=== PATIENT | female | born 1990 | race American Indian/Alaskan Native ===

== ENCOUNTER 2017-03-29 23:04 | Emergency (ER) | payer OTHER ==
[2017-03-29 23:44] VITALS: BP 115/73
[2017-03-30 00:17] LABS: Basophils % (Auto) 0.9 % (0.0-1.8); Eosinophils % (Auto) 2.5 % (0.0-4.3); Hematocrit 39.5 % (30.3-42.9); Hemoglobin 12.8 gm/dl (10.1-14.3); Mean Corpuscular HGB Conc 32 % (30-34); Mean Corpuscular Hemoglobin 29 pg (28-32); Mean Corpuscular Volume 88 fl (79-97); Platelet Count 229 K/mm3 (140-440); Red Blood Count 4.47 M/mm3 (3.65-5.03); Red Cell Distribution Width 13.9 % (13.2-15.2); White Blood Count 7.6 K/mm3 (4.5-11.0)
[2017-03-30 00:27] LABS: INR 0.97 (0.87-1.13)
[2017-03-30 00:28] LABS: Partial Thromboplastin Time 30.3 Sec. (24.2-36.6)
[2017-03-30 00:34] LABS: Anion Gap 15 mmol/L; BUN/Creatinine Ratio 11; Blood Urea Nitrogen 10 mg/dL (7-17); Calcium 8.5 mg/dL (8.4-10.2); Carbon Dioxide 27 mmol/L (22-30); Chloride 107.1 mmol/L (98-107); Glucose 70 mg/dL (65-100); Potassium 4.4 mmol/L (3.6-5.0); Sodium 145 mmol/L (137-145)
== END 2017-03-30 02:40 | disposition left against medical advice (07) ==
LOC: ED 23:04
DX: R07.2 Precordial pain (principal); Z53.21 Procedure and treatment not carried out due to patient leaving prior to being seen by health care provider
CPT/HCPCS: 36415; 80048; 84484; 84703; 85025; 85610; 85730; 93005; 93010